=== PATIENT | male | born 1990 | race African-American/Black ===

== ENCOUNTER 2020-11-30 16:48 | Outpatient (CLI) | payer BC, SELFPAY ==
--- NOTE | 2020-11-30 17:32 | RAD ---
AP PELVIS: History: Right hip pain. FINDINGS: Pelvis is intact. Hips are unremarkable. No osseous abnormality identified. IMPRESSION: No acute findings. POS: [facility]W
--- NOTE | 2020-11-30 17:33 | RAD ---
RIGHT HIP TWO VIEWS: History: Hip pain FINDINGS: The hip and right hemipelvis appears unremarkable. No osseous abnormality identified. IMPRESSION: No acute finding. POS: AGW
== END 2020-11-30 16:49 | disposition home or self-care (01) ==
LOC: SCSRAD 16:48
PROVIDERS: ATTEND Internal Medicine
DX: M25.551 Pain in right hip (principal)
CPT/HCPCS: 72170